=== PATIENT | female | born 1970 ===

== ENCOUNTER 2017-07-24 12:56 | Emergency (ER) | payer OTHER ==
[2017-07-24 13:00] VITALS: O2SAT 96
[2017-07-24] MEDS ORDERED: Sodium Chloride 0.9% 1,000 ML IV STA ×2 (13:23→16:49)
[2017-07-24 14:22] LABS: BASO # 0.1 K/uL (0.0-0.2); BASO % 0.4 % (0.0-2.0); EOS # 0.2 K/uL (0.0-0.7); EOS % 1.1 % (0.0-4.0); HEMOGLOBIN 13.6 g/dL (12.0-16.0); LYMPH # 0.6 K/uL (1.0-4.3); LYMPH % 4.5 % (20.0-40.0); MEAN CELL VOLUME 81.8 fl (81.0-99.0); MONO # 0.5 K/uL (0.0-0.8); MONO % 3.4 % (0.0-10.0); NEUT # 12.7 K/uL (1.8-7.0); NEUT % 90.6 % (50.0-75.0); PLATELET COUNT 320 K/uL (130-400); RBC 5.05 Mil/uL (3.80-5.20); RED CELL DISTRIBUTION WIDTH 16.3 % (11.5-14.5); WHITE BLOOD COUNT 14.1 K/uL (4.8-10.8)
[2017-07-24 14:41] LABS: ALBUMIN 4.3 g/dL (3.5-5.0); ALT/SGPT 46 U/L (9-52); AST/SGOT 30 U/L (14-36); BLOOD UREA NITROGEN 18 mg/dl (7-17); CALCIUM 9.6 mg/dL (8.4-10.2); GFR AFRICAN-AMERICAN > 60; GFR NON-AFRICAN AMERICAN > 60
[2017-07-24 15:02] LABS: ANISOCYTOSIS SLIGHT; LYMPHOCYTE 9 % (20-50); MONOCYTE 5 % (0-10); NEUTROPHIL 86 % (42-75); PLATELET ESTIMATE NORMAL (NORMAL); TOTAL CELLS COUNTED 100
--- NOTE | 2017-07-24 18:24 | ED PDOC ---
HPI: Abdomen Time Seen by Provider: 07/24/17 13:02 Chief Complaint (Nursing): Abdominal Pain Chief Complaint (Provider): Diffuse mild abdominal pain, diarrhea, vomiting History Per: Patient History/Exam Limitations: no limitations Onset/Duration Of Symptoms: Hrs Outside of [place] travel?: No Current Symptoms Are (Timing): Still Present Location Of Pain/Discomfort: Diffuse Quality Of Discomfort: Cramping (Intermittent ) Associated Symptoms: Nausea, Vomiting, Diarrhea, Loss Of Appetite. denies: Fever, Chills Exacerbating Factors: None Alleviating Factors: None Past Medical History Reviewed: Historical Data, Nursing Documentation, Vital Signs Vital Signs: Last Vital Signs Temp 98.2 F 07/24/17 18:00 Pulse 75 07/24/17 18:00 Resp 14 07/24/17 18:00 BP 125/70 07/24/17 18:00 Pulse Ox 96 07/24/17 18:25 - Medical History PMH: Arthritis, Asthma Denies: Chronic Kidney Disease - Surgical History Surgical History: Appendectomy - Family History Family History: States: Unknown Family Hx - Living Arrangements Living Arrangements: With Family - Social History Current smoker - smoking cessation education provided: No - Home Medications Home Medications: Ambulatory Orders Medication Instructions Recorded Azithromycin [Zithromax] 500 mg PO BID 3 Days tablet 04/09/16 predniSONE [predniSONE Tab] 60 mg PO DAILY #9 tab 04/09/16 Ibuprofen [Motrin Tab] 800 mg PO Q6H PRN #20 tab 05/26/16 oxyCODONE/Acetaminophen [Percocet 1 ea PO Q6H PRN #15 tab 05/26/16 5/325 mg Tab] - Allergies Allergies/Adverse Reactions: Allergies Allergy/AdvReac Type Severity Reaction Status Date / Time perfume Allergy SHORTNESS Verified 07/24/17 12:58 OF BREATH detergents Allergy SHORTNESS Uncoded 07/24/17 12:58 OF BREATH Review of Systems ROS Statement: Except As Marked, All Systems Reviewed And Found Negative Constitutional: Negative for: Fever, Chills Gastrointestinal: Positive for: Nausea, Vomiting, Abdominal Pain, Diarrhea Physical Exam - Reviewed Nursing Documentation Reviewed: Yes Vital Signs Reviewed: Yes - Physical Exam Appears: Positive for: Well, Non-toxic, No Acute Distress Head Exam: Positive for: ATRAUMATIC, NORMAL INSPECTION, NORMOCEPHALIC Skin: Positive for: Normal Color, Warm, DRY Eye Exam: Positive for: Normal appearance ENT: Positive for: Normal ENT Inspection Neck: Positive for: Normal, Painless ROM Cardiovascular/Chest: Positive for: Regular Rate, Rhythm Respiratory: Positive for: CNT, Normal Breath Sounds Gastrointestinal/Abdominal: Positive for: Normal Exam, Bowel Sounds, Soft. Negative for: Tenderness Back: Positive for: Normal Inspection Extremity: Positive for: Normal ROM Neurologic/Psych: Positive for: Alert, Oriented - Laboratory Results Result Diagrams: 07/24/17 14:18 07/24/17 14:18 - ECG O2 Sat by Pulse Oximetry: 96 Medical Decision Making Medical Decision Makin - Pt reports no improvement in pain. Elevated WBC. CT ordered for further evaluation. 1820 - Pt still pending CT abdomen/pelvis. Called CT and fuel cell technician states that test is not documented in computer. Disposition - Clinical Impression Clinical Impression: Abdominal pain - Patient ED Disposition Is Patient to be Admitted: Transfer of Care - Disposition Disposition: Transfer of Care Disposition Time: 20:00 Condition: GUARDED Forms: [email or web address] ([place]o)
[2017-07-24] MEDS ORDERED: Iohexol 300 100 ML IJ ONE (18:52)
[2017-07-24] MEDS ORDERED: Sodium Chloride 0.9% 0 ML ONE (18:52)
[2017-07-24 20:17] VITALS: BP 125/70; PULSE 75; RESP 14; TEMP 98.2
== END 2017-07-24 19:00 | disposition left against medical advice (07) ==
LOC: H.ER 12:56
DX: R10.9 Unspecified abdominal pain (principal); J45.909 Unspecified asthma, uncomplicated
CPT/HCPCS: 80053; 81025; 85025; 96360; 99284; J2405; J7040